=== PATIENT | female | born 1990 | race Hispanic/Latino ===

== ENCOUNTER 2019-03-29 12:58 | Emergency (ER) | payer SELFPAY ==
[2019-03-29 13:02] VITALS: BP 115/69
--- NOTE | 2019-03-29 16:36 | Emergency Department Report ---
Chief Complaint: Earache Stated Complaint: TOOTHACHE/EAR PAIN Time Seen by Provider: 03/29/19 15:48 - HPI History of Present Illness: 28-year-old female presents to the emergency room complaining of toothache on the right lower jaw and right ear pain 3 days. Patient states she's been taken [id number] Tylenol without much relief. Patient put she is aware that she has her with an teeth impacted somewhat. She reports she has an allergy to sulfa. She currently has no past medical history takes no medications on a daily basis. Patient reports that she is visiting from [place]. - Exam Vital Signs: Vital Signs 03/29/19 13:01 Temperature 98.2 F Pulse Rate 95 H Respiratory 16 Rate Blood Pressure 115/69 O2 Sat by Pulse 97 Oximetry Physical Exam: Patient's alert and oriented 3 no acute distress nontoxic in appearance. oral mouth is moist #32 is partially impacted no gingiva enlargement no abscess appreciated nonerythematous the discharge appreciated. Right ear normal exam no tragus tenderness to auricle tenderness or discharge appreciated. Membranes intact or bone structures are appreciated. MSE screening note: Focused history and physical exam performed. Due to findings the following was ordered: Patient will be discharged with instructions to take ibuprofen 600 mg every 8 hours and Tylenol every 4 hours for pain management. Patient needs to follow up with the primary dentist. ED Disposition for MSE Clinical Impression: Tooth ache Disposition: Z-07 MED SCREENING EXAM-LEFT Is pt being admited?: No Does the pt Need Aspirin: No Condition: Stable Additional Instructions: Take ibuprofen 600 mg every 8 hours as needed take Tylenol as needed every 4-6 hours. Follow-up with the dentist or oral surgeon. Referrals: VERONICA GARZA MD [Primary Care Provider] - 3-5 Days
== END 2019-03-29 16:54 | disposition left against medical advice (07) ==
LOC: ED 12:58
DX: K08.89 Other specified disorders of teeth and supporting structures (principal)
CPT/HCPCS: 99282